=== PATIENT | male | born 1975 | race Caucasian/White ===

== ENCOUNTER → 2020-06-08 | Outpatient (CLI) | payer OTHER | LOC: LAB 07:40 | PROVIDERS: ATTEND Registered Nurse | DX: Z20.828 Contact with and (suspected) exposure to other viral communicable diseases (principal) | CPT/HCPCS: U0003-CS ==

== ENCOUNTER → 2020-06-12 | Day surgery (SDC) | payer OTHER ==
[~2020-06-12] MED LIST: IPRATRPIUM/ALBUTEROL 0.5/2.5MG 3 ML NEBU. NEB PRN; IV RINGERS SOLUTION,LACTATED 1,000 ML IV SCH; LISI1TAB37 PO; MIDAZOLAM HCL PF 2 MG/2 ML VIAL. IV ONE; ONDANSETRON PF 4 MG/2 ML VIAL. IV PRN; PROPOFOL 10,000 MCG/ML (20ML) VIAL IV ONE
[2020-06-12 10:35] VITALS: BP 134/78
== END | disposition home or self-care (01) ==
LOC: EDSEX → SURG 07:59
PROVIDERS: ATTEND Emergency Medicine
DX: Z12.11 Encounter for screening for malignant neoplasm of colon (principal)
CPT/HCPCS: 45378; J2704; J7120